=== PATIENT | male | born 1970 | race Caucasian/White ===

== ENCOUNTER 2021-10-28 14:33 | Outpatient (CLI) | payer SELFPAY ==
[2021-10-29 00:54] LABS: SARS-CoV-2 PCR by NAA Not Detected (NotDetected)
== END 2021-10-28 14:34 | disposition home or self-care (01) ==
LOC: LABBT 14:33
PROVIDERS: ATTEND Student in an Organized Health Care Education/Training Program
DX: Z01.818 Encounter for other preprocedural examination (principal); K13.79 Other lesions of oral mucosa; S19.83XA Other specified injuries of vocal cord, initial encounter; R05.9 Cough, unspecified; J34.89 Other specified disorders of nose and nasal sinuses; Z20.822 Contact with and (suspected) exposure to COVID-19
CPT/HCPCS: 93005; 93010; U0003; U0005

== ENCOUNTER 2021-11-02 07:07 | Day surgery (SDC) | payer OTHER ==
[2021-10-29 11:49] VITALS: BMI 29.5
[2021-11-02] MEDS ORDERED: fentaNYL Citrate/PF 100 MCG/2 ML SYRINGE ONE (08:55)
[2021-11-02] MEDS ORDERED: Lidocaine 1% PF 5 ML VIAL ONE (09:06)
[2021-11-02] MEDS ORDERED: PROPOFOL 200 MG/20 ML VIAL ONE (09:06)
[2021-11-02] MEDS ORDERED: Rocuronium Bromide 10 MG/ML (10ML VIAL) ONE (09:06)
[2021-11-02] MEDS ORDERED: Dexamethasone 20 MG/5 ML VIAL ONE (09:06)
[2021-11-02] MEDS ORDERED: Ondansetron PF 4 MG/2 ML Vial ONE (09:06)
[2021-11-02] MEDS ORDERED: PHENYLEPHRINE-NS 100 MCG/ML 10 ML SYRINGE ONE (09:06)
[2021-11-02] MEDS ORDERED: Lidocaine 1% w/Epinephrine 1:100K 20 ML VIAL ONE (09:15)
== END 2021-11-02 11:55 | disposition home or self-care (01) ==
LOC: SDC 07:07
PROVIDERS: ATTEND Student in an Organized Health Care Education/Training Program
PROC: 0CTNXZZ Resection of Uvula, External Approach (ICD-10-PCS; principal; 2021-11-02)
DX: Q38.6 Other congenital malformations of mouth (principal); G47.30 Sleep apnea, unspecified; J30.9 Allergic rhinitis, unspecified; J34.89 Other specified disorders of nose and nasal sinuses; Z87.891 Personal history of nicotine dependence; Z79.899 Other long term (current) drug therapy; Z88.0 Allergy status to penicillin
CPT/HCPCS: 88302; J1100; J2405; J2704